=== PATIENT | female | born 1945 | race African-American/Black ===

== ENCOUNTER 2020-07-21 21:44 | Observation (INO) | payer OTHER ==
[2020-07-21 23:22] LABS: BASO % 0.8 % (0-2.0); EOS % 3.5 % (0-4.5); HEMATOCRIT 35.9 % (32.4-45.2); HEMOGLOBIN 11.6 GM/dL (10.7-15.3); LYMPH % 26.6 % (8-40); MCH 30.3 pg (25.7-33.7); MCHC 32.3 g/dl (32.0-36.0); MEAN CELL VOLUME 93.7 fl (80-96); MEAN PLT VOLUME 8.8 fl (7.5-11.1); NEUT % 58.1 % (42.8-82.8); PLATELET COUNT 237 K/MM3 (134-434); RBC 3.84 M/mm3 (3.60-5.2); WHITE BLOOD COUNT 4.8 K/mm3 (4.0-10.0)
[2020-07-22] LABS: ALBUMIN 3.6 g/dl (3.4-5.0); BILIRUBIN,TOTAL 0.8 mg/dL (0.2-1); BLOOD UREA NITROGEN 18.6 mg/dL (7-18); CALCIUM 8.8 mg/dL (8.5-10.1); CREATININE 0.8 mg/dL (0.55-1.3)
[2020-07-22] MEDS ORDERED: NEBIVOLOL 5 MG TABLET (FP) PO ONE (01:27)
[2020-07-22 03:47] LABS: EPI CELLS 19 /uL (0-25.1); HYALINE CASTS 0 /uL (0-3.1); URINE APPEARANCE CLOUDY; URINE BACTERIA >9,000 /uL (0-1359); URINE BILIRUBIN NEGATIVE (NEGATIVE); URINE COLOR YELLOW; URINE GLUCOSE (UA) NEGATIVE (NEGATIVE); URINE KETONE TRACE (NEGATIVE); URINE LEUK ESTERASE NEGATIVE (NEGATIVE); URINE NITRITE NEGATIVE (NEGATIVE); URINE PROTEIN 1+ (NEGATIVE); URINE RBC 2 /uL (0-23.9); URINE WBC 6 /uL (0-25.8)
[2020-07-22 03:53] LABS: URINE BARBITURATES NEGATIVE ng/ml (CUTOFF=200); URINE BENZODIAZEPINES NEGATIVE ng/ml (CUTOFF=200)
[2020-07-22 03:54] LABS: URINE AMPHETAMINES NEGATIVE ng/ml (CUTOFF=500)
[2020-07-22 04:00] LABS: COCAINE, UR NEGATIVE ng/ml (CUTOFF=300); METHADONE, UR NEGATIVE ng/ml (CUTOFF=300); OPIATES, URI NEGATIVE ng/ml (CUTOFF=300); PHENCYCLIDINE,URINE NEGATIVE ng/ml (CUTOFF=25)
[2020-07-22 06:29] LABS: HEMATOCRIT 36.8 % (32.4-45.2); HEMOGLOBIN 12.2 GM/dL (10.7-15.3); MCH 30.6 pg (25.7-33.7); MEAN CELL VOLUME 92.7 fl (80-96); PLATELET COUNT 243 K/MM3 (134-434); RBC 3.97 M/mm3 (3.60-5.2); RDW 14.9 % (11.6-15.6)
[2020-07-22 06:43] LABS: POTASSIUM 4.2 mmol/L (3.5-5.1)
[2020-07-22 06:47] LABS: BLOOD UREA NITROGEN 16.5 mg/dL (7-18)
[2020-07-22 06:51] LABS: CHOLESTEROL 179 mg/dL (50-200); CREATININE 0.7 mg/dL (0.55-1.3); PHOSPHOROUS 4.1 mg/dL (2.5-4.9); TRIGLYCERIDES 55 mg/dL (0-150)
[2020-07-22 06:52] LABS: LDL CHOLESTEROL (ONLY SJRH) 108 mg/dL (5-100)
[2020-07-22 06:54] LABS: HDL CHOLESTEROL 62 mg/dL (40-60)
[2020-07-22] MEDS: INSULIN SLIDING SCALE (NOVOLOG) 1 VIAL SQ SCH ×4 (07:16→23:34)
[2020-07-22] MEDS ORDERED: ASPIRIN 81 MG CHEWABLE TABLETS ONE (09:10)
[2020-07-22] MEDS ORDERED: ENOXAPARIN NA (PORCINE) 40 MG/0.4 ML DISP.SYRIN SQ ONE (09:10)
[2020-07-22] MEDS: ENOXAPARIN NA (PORCINE) 40 MG/0.4 ML DISP.SYRIN SQ SCH (09:13)
[2020-07-22] MEDS: ASPIRIN 81 MG CHEWABLE TABLETS PO SCH (09:13)
[2020-07-22] MEDS ORDERED: amLODIPine BESYLATE 5 MG TABLET (FP) PO SCH (15:45)
[2020-07-22] MEDS ORDERED: amLODIPine BESYLATE 5 MG TABLET (FP) ONE (16:43)
[2020-07-22] MEDS ORDERED: ATORVASTATIN CA 10 MG TABLET (FP) ONE (22:16)
[2020-07-22] MEDS: ATORVASTATIN CA 40 MG TABLET (FP) PO SCH (23:33)
[2020-07-22] MEDS: NEBIVOLOL 5 MG TABLET (FP) PO SCH (23:34)
[2020-07-23 01:42] VITALS: BMI 37.5
[2020-07-23] MEDS: INSULIN SLIDING SCALE (NOVOLOG) 1 VIAL SQ SCH ×4 (06:37→21:13)
[2020-07-23] MEDS ORDERED: PT OWN MED DRAWER 7, Y5N ONE (10:42)
[2020-07-23] MEDS: ASPIRIN 81 MG CHEWABLE TABLETS PO SCH (10:58)
[2020-07-23] MEDS: PETROLATUM, WHITE 30 GM TUBE TP SCH (10:58)
[2020-07-23] MEDS: ENOXAPARIN NA (PORCINE) 40 MG/0.4 ML DISP.SYRIN SQ SCH (10:58)
[2020-07-23] MEDS: amLODIPine BESYLATE 10 MG TABLET (FP) PO SCH (10:58)
[2020-07-23] MEDS: NEBIVOLOL 5 MG TABLET (FP) PO SCH (21:11)
[2020-07-23] MEDS: ATORVASTATIN CA 40 MG TABLET (FP) PO SCH (21:11)
[2020-07-24 06:46] LABS: HEMATOCRIT 35.2 % (32.4-45.2); HEMOGLOBIN 11.6 GM/dL (10.7-15.3); MCH 30.6 pg (25.7-33.7); MEAN CELL VOLUME 92.7 fl (80-96); MEAN PLT VOLUME 8.7 fl (7.5-11.1); PLATELET COUNT 216 K/MM3 (134-434); RDW 14.7 % (11.6-15.6)
[2020-07-24 07:07] LABS: POTASSIUM 3.9 mmol/L (3.5-5.1)
[2020-07-24] MEDS: INSULIN SLIDING SCALE (NOVOLOG) 1 VIAL SQ SCH ×2 (07:08→13:32)
[2020-07-24 07:13] LABS: CALCIUM 9.3 mg/dL (8.5-10.1)
[2020-07-24 07:14] LABS: ALBUMIN 3.5 g/dl (3.4-5.0); BLOOD UREA NITROGEN 18.7 mg/dL (7-18)
[2020-07-24 07:17] LABS: CREATININE 0.6 mg/dL (0.55-1.3)
[2020-07-24 07:19] LABS: BILIRUBIN,TOTAL 1.3 mg/dL (0.2-1); TOT PROT 6.6 g/dl (6.4-8.2)
[2020-07-24] MEDS ORDERED: REGADENOSON 0.4 MG/5 ML PRE-FILLED SYRINGE IVPUSH ONE ×2 (10:24→10:30)
[2020-07-24 10:56] VITALS: BP 148/83; PULSE 80; TEMP 98.2
[2020-07-24] MEDS: ENOXAPARIN NA (PORCINE) 40 MG/0.4 ML DISP.SYRIN SQ SCH (13:48)
[2020-07-24] MEDS: ASPIRIN 81 MG CHEWABLE TABLETS PO SCH (13:49)
[2020-07-24] MEDS: PETROLATUM, WHITE 30 GM TUBE TP SCH (13:49)
[2020-07-24] MEDS: amLODIPine BESYLATE 10 MG TABLET (FP) PO SCH (13:49)
== END 2020-07-24 18:21 | disposition home or self-care (01) ==
LOC: JER 21:44 → JERBED 07-22 00:31 → J4W 07-23 00:20
PROVIDERS: ADMIT Internal Medicine; ATTEND Internal Medicine
PROC: 3E023GC Introduction of Other Therapeutic Substance into Muscle, Percutaneous Approach (ICD-10-PCS; principal; 2020-07-22)
PROC: 3E033GC Introduction of Other Therapeutic Substance into Peripheral Vein, Percutaneous Approach (ICD-10-PCS; 2020-07-22)
DX: R55 Syncope and collapse (principal); E11.9 Type 2 diabetes mellitus without complications; I10 Essential (primary) hypertension; E78.5 Hyperlipidemia, unspecified; Z88.0 Allergy status to penicillin; Z91.018 Allergy to other foods; Z91.013 Allergy to seafood; E66.9 Obesity, unspecified; Z68.37 Body mass index [BMI] 37.0-37.9, adult; Z96.653 Presence of artificial knee joint, bilateral; I35.0 Nonrheumatic aortic (valve) stenosis; D25.9 Leiomyoma of uterus, unspecified; Z29.9 Encounter for prophylactic measures, unspecified
CPT/HCPCS: 36415; 70450-TC; 71045-TC-FY; 78452-TC; 80048; 80053; 80061; 80307; 81003; 82550; 82553; 82962; 83721; 83735; 84100; 84443; 84484; 85025; 85027; 93005; 93010; 93017; 96372; 96374; 97116-GP; 97161-GP; 99285-25; A9502; C9803; G0378; J2785; U0003

== ENCOUNTER 2021-06-21 18:17 | Inpatient (IN) | payer OTHER ==
[2021-06-21] MEDS ORDERED: DIPHTH,PERTUSS(ACELL),TET 0.5 ML DISP.SYRIN IM ONE ×2 (19:23→21:18)
[2021-06-21 21:13] LABS: BASO % 0.8 % (0-2.0); EOS % 0.8 % (0-4.5); HEMATOCRIT 37.7 % (32.4-45.2); HEMOGLOBIN 12.4 GM/dL (10.7-15.3); LYMPH % 13.6 % (8-40); MCH 30.9 pg (25.7-33.7); MCHC 32.8 g/dl (32.0-36.0); MEAN CELL VOLUME 94.2 fl (80-96); MEAN PLT VOLUME 8.5 fl (7.5-11.1); MONO % 8.7 % (3.8-10.2); NEUT % 76.1 % (42.8-82.8); PLATELET COUNT 234 10^3/uL (134-434); RDW 15.2 % (11.6-15.6); WHITE BLOOD COUNT 5.1 K/mm3 (4.0-10.0)
[2021-06-21 21:29] LABS: CHLORIDE 108 mmol/L (98-107); SODIUM 140 mmol/L (136-145)
[2021-06-21 21:32] LABS: ALBUMIN 3.5 g/dl (3.4-5.0); ANION GAP 6 MMOL/L (8-16); CALCIUM 9.2 mg/dL (8.5-10.1); CO2 26 mmol/L (21-32); GLUCOSE,RANDOM 117 mg/dL (74-106); MAGNESIUM 2.4 mg/dL (1.8-2.4)
[2021-06-21 21:35] LABS: CREATININE 0.8 mg/dL (0.55-1.3); SGOT/AST 20 U/L (15-37); SGPT/ALT 15 U/L (13-61)
[2021-06-21 21:37] LABS: BILIRUBIN,TOTAL 0.7 mg/dL (0.2-1)
[2021-06-21 21:38] LABS: ALK PHOS 68 U/L (45-117)
[2021-06-21 21:39] LABS: BLOOD UREA NITROGEN 18.6 mg/dL (7-18)
[2021-06-22] MEDS ORDERED: LISINOPRIL 10 MG TABLET PO ONE (04:12)
[2021-06-22 04:34] VITALS: BMI 37.7
[2021-06-22 05:07] LABS: EPI CELLS >36 /uL (0-25.1); HYALINE CASTS 10 /uL (0-3.1); PH,URINE 5.5 (5.0-8.0); URINE APPEARANCE CLOUDY; URINE BACTERIA >9,000 /uL (0-1359); URINE BILIRUBIN NEGATIVE (NEGATIVE); URINE COLOR YELLOW; URINE GLUCOSE (UA) NEGATIVE (NEGATIVE); URINE KETONE TRACE (NEGATIVE); URINE LEUK ESTERASE 1+ (NEGATIVE); URINE NITRITE NEGATIVE (NEGATIVE); URINE PROTEIN 1+ (NEGATIVE); URINE RBC 14 /uL (0-23.9); URINE WBC 260 /uL (0-25.8)
[2021-06-22] MEDS: INSULIN SLIDING SCALE (NOVOLOG) 1 VIAL SQ SCH ×4 (07:05→21:01)
[2021-06-22 07:16] LABS: BASO % 0.8 % (0-2.0); EOS % 2.2 % (0-4.5); HEMATOCRIT 34.1 % (32.4-45.2); HEMOGLOBIN 11.6 GM/dL (10.7-15.3); LYMPH % 28.3 % (8-40); MCH 31.6 pg (25.7-33.7); MCHC 33.9 g/dl (32.0-36.0); MEAN CELL VOLUME 93.3 fl (80-96); MONO % 7.2 % (3.8-10.2); NEUT % 61.5 % (42.8-82.8); PLATELET COUNT 225 10^3/uL (134-434); RBC 3.65 M/mm3 (3.60-5.2); RDW 15.1 % (11.6-15.6); WHITE BLOOD COUNT 4.5 K/mm3 (4.0-10.0)
[2021-06-22 07:37] LABS: ALBUMIN 3.3 g/dl (3.4-5.0)
[2021-06-22 07:41] LABS: CREATININE 0.8 mg/dL (0.55-1.3); MAGNESIUM 2.2 mg/dL (1.8-2.4)
[2021-06-22 07:42] LABS: BLOOD UREA NITROGEN 18.6 mg/dL (7-18); CALCIUM 9.2 mg/dL (8.5-10.1); TOT PROT 6.4 g/dl (6.4-8.2)
[2021-06-22 07:46] LABS: BILIRUBIN,TOTAL 0.7 mg/dL (0.2-1); PHOSPHOROUS 3.3 mg/dL (2.5-4.9)
[2021-06-22] MEDS ORDERED: ENOXAPARIN NA (PORCINE) 40 MG/0.4 ML DISP.SYRIN SQ SCH (10:00)
[2021-06-22] MEDS: BACITRACIN 15 GM TUBE TOPICAL OINTMENT TP SCH (10:58)
[2021-06-22 19:47] LABS: EPI CELLS 24 /uL (0-25.1); HYALINE CASTS 0 /uL (0-3.1); PH,URINE 5.5 (5.0-8.0); URINE APPEARANCE CLOUDY; URINE BACTERIA >9,000 /uL (0-1359); URINE BILIRUBIN NEGATIVE (NEGATIVE); URINE COLOR YELLOW; URINE GLUCOSE (UA) NEGATIVE (NEGATIVE); URINE KETONE TRACE (NEGATIVE); URINE LEUK ESTERASE 2+ (NEGATIVE); URINE NITRITE POSITIVE (NEGATIVE); URINE PROTEIN TRACE (NEGATIVE); URINE RBC 19 /uL (0-23.9); URINE WBC 171 /uL (0-25.8)
[2021-06-22] MEDS: ATORVASTATIN CA 40 MG TABLET (FP) PO SCH (21:00)
[2021-06-22] MEDS ORDERED: NEBIVOLOL 5 MG TABLET (FP) PO SCH (22:00)
[2021-06-23] MEDS: INSULIN SLIDING SCALE (NOVOLOG) 1 VIAL SQ SCH ×4 (06:54→21:17)
[2021-06-23 07:04] LABS: EOS % 3.6 % (0-4.5); HEMATOCRIT 34.1 % (32.4-45.2); HEMOGLOBIN 11.5 GM/dL (10.7-15.3); LYMPH % 32.2 % (8-40); MCHC 33.6 g/dl (32.0-36.0); MEAN CELL VOLUME 92.4 fl (80-96); MEAN PLT VOLUME 8.6 fl (7.5-11.1); MONO % 10.2 % (3.8-10.2); PLATELET COUNT 220 10^3/uL (134-434); RDW 15.3 % (11.6-15.6); WHITE BLOOD COUNT 4.9 K/mm3 (4.0-10.0)
[2021-06-23 07:09] LABS: ALBUMIN 3.2 g/dl (3.4-5.0); BLOOD UREA NITROGEN 18.9 mg/dL (7-18); CALCIUM 9.2 mg/dL (8.5-10.1)
[2021-06-23 07:10] LABS: MAGNESIUM 2.2 mg/dL (1.8-2.4)
[2021-06-23 07:12] LABS: CREATININE 0.8 mg/dL (0.55-1.3); PHOSPHOROUS 3.2 mg/dL (2.5-4.9)
[2021-06-23 07:13] LABS: BILIRUBIN,TOTAL 1.1 mg/dL (0.2-1); TOT PROT 6.6 g/dl (6.4-8.2)
[2021-06-23] MEDS ORDERED: ATENOLOL 50 MG TABLET (FP) PO SCH (10:00)
[2021-06-23] MEDS ORDERED: amLODIPine BESYLATE 10 MG TABLET (FP) PO SCH (10:00)
[2021-06-23] MEDS: ENOXAPARIN NA (PORCINE) 40 MG/0.4 ML DISP.SYRIN SQ SCH (10:09)
[2021-06-23] MEDS: BACITRACIN 15 GM TUBE TOPICAL OINTMENT TP SCH (10:10)
[2021-06-23] MEDS: ATORVASTATIN CA 40 MG TABLET (FP) PO SCH (21:21)
[2021-06-24] MEDS: INSULIN SLIDING SCALE (NOVOLOG) 1 VIAL SQ SCH ×4 (06:42→21:07)
[2021-06-24 07:44] LABS: BASO % 1.2 % (0-2.0); EOS % 3.7 % (0-4.5); HEMATOCRIT 33.9 % (32.4-45.2); HEMOGLOBIN 11.4 GM/dL (10.7-15.3); LYMPH % 37.1 % (8-40); MCH 31.3 pg (25.7-33.7); MCHC 33.6 g/dl (32.0-36.0); MEAN CELL VOLUME 93.2 fl (80-96); MEAN PLT VOLUME 8.8 fl (7.5-11.1); MONO % 11.6 % (3.8-10.2); NEUT % 46.4 % (42.8-82.8); PLATELET COUNT 211 10^3/uL (134-434); RBC 3.64 M/mm3 (3.60-5.2); RDW 14.9 % (11.6-15.6); WHITE BLOOD COUNT 4.3 K/mm3 (4.0-10.0)
[2021-06-24 07:46] LABS: BLOOD UREA NITROGEN 19.2 mg/dL (7-18); CALCIUM 8.7 mg/dL (8.5-10.1)
[2021-06-24 07:47] LABS: MAGNESIUM 2.1 mg/dL (1.8-2.4)
[2021-06-24 07:49] LABS: CREATININE 0.7 mg/dL (0.55-1.3)
[2021-06-24 07:50] LABS: PHOSPHOROUS 3.2 mg/dL (2.5-4.9)
[2021-06-24 07:51] LABS: BILIRUBIN,TOTAL 1.2 mg/dL (0.2-1); TOT PROT 6.1 g/dl (6.4-8.2)
[2021-06-24] MEDS: BACITRACIN 15 GM TUBE TOPICAL OINTMENT TP SCH (09:54)
[2021-06-24] MEDS: metoPROLOL SUCCINATE 25 MG TAB.SR.24H (FP) PO SCH ×2 (09:54→21:22)
[2021-06-24] MEDS: ENOXAPARIN NA (PORCINE) 40 MG/0.4 ML DISP.SYRIN SQ SCH (09:54)
[2021-06-24] MEDS ORDERED: SODIUM CHLORIDE 1,000 ML IV SCH (13:00)
[2021-06-24] MEDS ORDERED: PT OWN MED DRAWER 7, Y5N ONE ×2 (15:41→20:44)
[2021-06-24] MEDS: ATORVASTATIN CA 40 MG TABLET (FP) PO SCH (21:22)
[2021-06-24] MEDS ORDERED: BENZOCAINE/MENTH/CETYLPYRD CL 1 EACH LOZENGE MM PRN (22:47)
[2021-06-25] MEDS ORDERED: LABETALOL HCL 5 MG/1 ML (100MG/20 ML VIAL) ONE (03:00)
[2021-06-25] MEDS ORDERED: LABETALOL HCL 5 MG/1 ML (100MG/20 ML VIAL) IVPUSH ONE (03:04)
[2021-06-25] MEDS ORDERED: ACETAMINOPHEN 1000 MG/100 ML VIAL IVPB PRN (03:28)
[2021-06-25] MEDS ORDERED: PT OWN MED DRAWER 7, Y5N ONE ×2 (06:21→08:59)
[2021-06-25] MEDS: INSULIN SLIDING SCALE (NOVOLOG) 1 VIAL SQ SCH ×2 (06:38→11:52)
[2021-06-25 07:22] LABS: BASO % 0.9 % (0-2.0); EOS % 5.2 % (0-4.5); HEMATOCRIT 31.7 % (32.4-45.2); HEMOGLOBIN 10.6 GM/dL (10.7-15.3); LYMPH % 39.1 % (8-40); MCH 31.5 pg (25.7-33.7); MCHC 33.5 g/dl (32.0-36.0); MEAN CELL VOLUME 93.9 fl (80-96); MEAN PLT VOLUME 8.5 fl (7.5-11.1); MONO % 11.3 % (3.8-10.2); NEUT % 43.5 % (42.8-82.8); PLATELET COUNT 213 10^3/uL (134-434); RBC 3.37 M/mm3 (3.60-5.2); RDW 15.4 % (11.6-15.6); WHITE BLOOD COUNT 4.3 K/mm3 (4.0-10.0)
[2021-06-25 07:45] LABS: CALCIUM 8.7 mg/dL (8.5-10.1)
[2021-06-25 07:46] LABS: BLOOD UREA NITROGEN 17.9 mg/dL (7-18)
[2021-06-25 07:47] LABS: MAGNESIUM 2.1 mg/dL (1.8-2.4)
[2021-06-25 07:48] LABS: ALBUMIN 2.9 g/dl (3.4-5.0)
[2021-06-25 07:49] LABS: PHOSPHOROUS 2.9 mg/dL (2.5-4.9)
[2021-06-25 07:50] LABS: BILIRUBIN,TOTAL 1.1 mg/dL (0.2-1); TOT PROT 6.2 g/dl (6.4-8.2)
[2021-06-25 07:51] LABS: CREATININE 0.8 mg/dL (0.55-1.3)
[2021-06-25] MEDS ORDERED: OXYMETAZOLINE 0.05% NASAL SOLUTION 15 ML BOTTLE NS ONE (07:52)
[2021-06-25] MEDS: metoPROLOL SUCCINATE 25 MG TAB.SR.24H (FP) PO SCH (09:19)
[2021-06-25] MEDS: ENOXAPARIN NA (PORCINE) 40 MG/0.4 ML DISP.SYRIN SQ SCH (09:19)
[2021-06-25] MEDS: BACITRACIN 15 GM TUBE TOPICAL OINTMENT TP SCH (09:22)
[2021-06-25] MEDS ORDERED: LISINOPRIL 10 MG TABLET PO SCH (10:00)
[2021-06-25 12:43] VITALS: TEMP 98.2
[2021-06-25 15:48] VITALS: BP 149/79; PULSE 72
== END 2021-06-25 15:40 | disposition home or self-care (01) | DRG 312 ==
LOC: JER 18:17 → INTOOBSV 22:31 → OBSVTOIN 22:31 → JERBED 22:31 → UNDOADMOB 22:31 → JERBED 06-22 03:25 → J2W 06-22 03:25 → JERBED 06-22 08:59 → OBSVTOIN 06-25 11:03
PROVIDERS: ADMIT Internal Medicine; ATTEND Internal Medicine
DX: I95.1 Orthostatic hypotension (principal); N39.0 Urinary tract infection, site not specified; I10 Essential (primary) hypertension; E78.5 Hyperlipidemia, unspecified; Z88.0 Allergy status to penicillin; E66.9 Obesity, unspecified; Z68.37 Body mass index [BMI] 37.0-37.9, adult; E11.9 Type 2 diabetes mellitus without complications; S02.2XXA Fracture of nasal bones, initial encounter for closed fracture; W19.XXXA Unspecified fall, initial encounter; Y93.89 Activity, other specified; Y92.89 Other specified places as the place of occurrence of the external cause; Y99.8 Other external cause status; Z79.84 Long term (current) use of oral hypoglycemic drugs; I35.0 Nonrheumatic aortic (valve) stenosis; T46.1X5A Adverse effect of calcium-channel blockers, initial encounter
CPT/HCPCS: 36415; 70450-TC; 70486-TC; 71045-TC-FY; 72125-TC; 80053; 80061; 81003; 82550; 82553; 82962; 83735; 84100; 84484; 85025; 87086; 87186; 90715; 93005; 93010; 93306-TC; 93880-TC; 97116-GP; 97161-GP; 99285-25; C9803; G0378; U0003; U0005

== ENCOUNTER 2021-09-22 14:23 | Inpatient (IN) | payer OTHER ==
[2021-09-22 16:08] LABS: BASO % 1.4 % (0-2.0); EOS % 1.2 % (0-4.5); HEMATOCRIT 33.1 % (32.4-45.2); HEMOGLOBIN 10.8 GM/dL (10.7-15.3); LYMPH % 16.5 % (8-40); MCH 29.5 pg (25.7-33.7); MCHC 32.8 g/dl (32.0-36.0); MEAN CELL VOLUME 90.1 fl (80-96); MONO % 9.8 % (3.8-10.2); NEUT % 71.1 % (42.8-82.8); PLATELET COUNT 246 10^3/uL (134-434); RBC 3.67 M/mm3 (3.60-5.2); RDW 14.9 % (11.6-15.6); WHITE BLOOD COUNT 3.8 K/mm3 (4.0-10.0)
[2021-09-22 16:28] LABS: BLOOD UREA NITROGEN 16.7 mg/dL (7-18); CALCIUM 9.5 mg/dL (8.5-10.1)
[2021-09-22 16:29] LABS: ALBUMIN 3.7 g/dl (3.4-5.0)
[2021-09-22 16:31] LABS: CREATININE 0.8 mg/dL (0.55-1.3)
[2021-09-22 16:33] LABS: BILIRUBIN,TOTAL 0.6 mg/dL (0.2-1); TOT PROT 7.3 g/dl (6.4-8.2)
[2021-09-22] MEDS ORDERED: PANTOPRAZOLE 40 MG TABLET PO STA (18:28)
[2021-09-22] MEDS ORDERED: CLOPIDOGREL BISULFATE 75 MG TABLET (FP) PO STA (18:28)
[2021-09-22] MEDS ORDERED: ATORVASTATIN CA 40 MG TABLET (FP) PO STA (18:29)
[2021-09-22] MEDS ORDERED: PANTOPRAZOLE 40 MG TABLET ONE (18:36)
[2021-09-22] MEDS ORDERED: CLOPIDOGREL BISULFATE 75 MG TABLET (FP) ONE (18:37)
[2021-09-22] MEDS ORDERED: ATORVASTATIN CA 40 MG TABLET (FP) ONE ×2 (18:37→22:05)
[2021-09-22] MEDS ORDERED: HEPARIN NA (PORCINE) 5,000 UNITS/ML 1ML VIAL ONE (22:06)
[2021-09-22] MEDS: ATORVASTATIN CA 40 MG TABLET (FP) PO SCH (22:12)
[2021-09-22] MEDS: HEPARIN NA (PORCINE) 5,000 UNITS/ML 1ML VIAL SQ SCH (22:12)
[2021-09-23] MEDS ORDERED: HEPARIN NA (PORCINE) 5,000 UNITS/ML 1ML VIAL ONE ×2 (06:14→14:24)
[2021-09-23] MEDS: HEPARIN NA (PORCINE) 5,000 UNITS/ML 1ML VIAL SQ SCH ×3 (06:24→21:38)
[2021-09-23 06:34] LABS: URINE APPEARANCE CLEAR; URINE BILIRUBIN NEGATIVE (NEGATIVE); URINE COLOR YELLOW; URINE GLUCOSE (UA) NEGATIVE (NEGATIVE); URINE KETONE NEGATIVE (NEGATIVE); URINE LEUK ESTERASE NEGATIVE (NEGATIVE); URINE NITRITE NEGATIVE (NEGATIVE); URINE PROTEIN NEGATIVE (NEGATIVE)
[2021-09-23] MEDS: INSULIN SLIDING SCALE (NOVOLOG) 1 VIAL SQ SCH ×3 (07:45→17:04)
[2021-09-23] MEDS ORDERED: PANTOPRAZOLE 40 MG TABLET ONE (10:41)
[2021-09-23] MEDS ORDERED: ASPIRIN 81 MG CHEWABLE TABLETS ONE (10:41)
[2021-09-23] MEDS ORDERED: CLOPIDOGREL BISULFATE 75 MG TABLET (FP) ONE (10:42)
[2021-09-23] MEDS: CLOPIDOGREL BISULFATE 75 MG TABLET (FP) PO SCH (10:50)
[2021-09-23] MEDS: ASPIRIN 81 MG CHEWABLE TABLETS PO SCH (10:50)
[2021-09-23] MEDS: PANTOPRAZOLE 40 MG TABLET PO SCH (10:50)
[2021-09-23 10:54] LABS: BASO % 2.1 % (0-2.0); EOS % 2.5 % (0-4.5); HEMATOCRIT 32.4 % (32.4-45.2); HEMOGLOBIN 10.7 GM/dL (10.7-15.3); LYMPH % 41.7 % (8-40); MCH 29.4 pg (25.7-33.7); MEAN CELL VOLUME 89.1 fl (80-96); MEAN PLT VOLUME 8.6 fl (7.5-11.1); MONO % 8.5 % (3.8-10.2); NEUT % 45.2 % (42.8-82.8); PLATELET COUNT 257 10^3/uL (134-434); RBC 3.64 M/mm3 (3.60-5.2); RDW 14.7 % (11.6-15.6)
[2021-09-23 11:20] LABS: ALBUMIN 3.5 g/dl (3.4-5.0); BILIRUBIN,TOTAL 0.9 mg/dL (0.2-1); BLOOD UREA NITROGEN 21.6 mg/dL (7-18); CALCIUM 9.4 mg/dL (8.5-10.1); CREATININE 0.8 mg/dL (0.55-1.3); MAGNESIUM 2.3 mg/dL (1.8-2.4); TOT PROT 7.1 g/dl (6.4-8.2)
[2021-09-23 17:01] VITALS: BMI 35.7
[2021-09-23] MEDS: ATORVASTATIN CA 40 MG TABLET (FP) PO SCH (21:39)
[2021-09-24] MEDS: INSULIN SLIDING SCALE (NOVOLOG) 1 VIAL SQ SCH ×3 (06:23→17:03)
[2021-09-24] MEDS: HEPARIN NA (PORCINE) 5,000 UNITS/ML 1ML VIAL SQ SCH ×3 (06:48→21:31)
[2021-09-24] MEDS: ASPIRIN 81 MG CHEWABLE TABLETS PO SCH (10:26)
[2021-09-24] MEDS: PANTOPRAZOLE 40 MG TABLET PO SCH (10:26)
[2021-09-24] MEDS: CLOPIDOGREL BISULFATE 75 MG TABLET (FP) PO SCH (10:26)
[2021-09-24 13:07] LABS: BASO % 2.9 % (0-2.0); EOS % 3.7 % (0-4.5); HEMATOCRIT 30.8 % (32.4-45.2); HEMOGLOBIN 10.2 GM/dL (10.7-15.3); LYMPH % 43.5 % (8-40); MCH 29.3 pg (25.7-33.7); MEAN CELL VOLUME 88.9 fl (80-96); MEAN PLT VOLUME 8.6 fl (7.5-11.1); MONO % 14.1 % (3.8-10.2); NEUT % 35.8 % (42.8-82.8); PLATELET COUNT 228 10^3/uL (134-434); RBC 3.47 M/mm3 (3.60-5.2); RDW 14.4 % (11.6-15.6); WHITE BLOOD COUNT 2.6 K/mm3 (4.0-10.0)
[2021-09-24 13:22] LABS: ALBUMIN 3.2 g/dl (3.4-5.0)
[2021-09-24 13:25] LABS: CREATININE 0.8 mg/dL (0.55-1.3)
[2021-09-24 13:27] LABS: BILIRUBIN,TOTAL 0.9 mg/dL (0.2-1); TOT PROT 6.6 g/dl (6.4-8.2)
[2021-09-24] MEDS: DOCUSATE SODIUM 100 MG CAPSULE (FP) PO SCH (18:51)
[2021-09-24] MEDS: ATORVASTATIN CA 40 MG TABLET (FP) PO SCH (21:31)
[2021-09-25] MEDS: INSULIN SLIDING SCALE (NOVOLOG) 1 VIAL SQ SCH ×3 (06:07→17:52)
[2021-09-25] MEDS: HEPARIN NA (PORCINE) 5,000 UNITS/ML 1ML VIAL SQ SCH ×3 (06:28→21:52)
[2021-09-25 07:30] LABS: HEMATOCRIT 31.6 % (32.4-45.2); HEMOGLOBIN 10.5 GM/dL (10.7-15.3); MCH 29.4 pg (25.7-33.7); MCHC 33.1 g/dl (32.0-36.0); MEAN CELL VOLUME 88.9 fl (80-96); MEAN PLT VOLUME 8.6 fl (7.5-11.1); PLATELET COUNT 215 10^3/uL (134-434); RBC 3.56 M/mm3 (3.60-5.2); RDW 14.8 % (11.6-15.6); WHITE BLOOD COUNT 3.8 K/mm3 (4.0-10.0)
[2021-09-25 07:59] LABS: CALCIUM 8.8 mg/dL (8.5-10.1)
[2021-09-25 08:00] LABS: MAGNESIUM 2.1 mg/dL (1.8-2.4)
[2021-09-25 08:02] LABS: ALBUMIN 3.4 g/dl (3.4-5.0); BLOOD UREA NITROGEN 22.5 mg/dL (7-18)
[2021-09-25 08:03] LABS: CREATININE 0.8 mg/dL (0.55-1.3)
[2021-09-25 08:05] LABS: PHOSPHOROUS 3.8 mg/dL (2.5-4.9); TOT PROT 6.6 g/dl (6.4-8.2)
[2021-09-25 08:06] LABS: BILIRUBIN,TOTAL 0.7 mg/dL (0.2-1)
[2021-09-25] MEDS: PANTOPRAZOLE 40 MG TABLET PO SCH (09:03)
[2021-09-25] MEDS: ASPIRIN 81 MG CHEWABLE TABLETS PO SCH (09:03)
[2021-09-25] MEDS: CLOPIDOGREL BISULFATE 75 MG TABLET (FP) PO SCH (09:03)
[2021-09-25] MEDS: DOCUSATE SODIUM 100 MG CAPSULE (FP) PO SCH (09:08)
[2021-09-25] MEDS ORDERED: metoPROLOL SUCCINATE 25 MG TAB.SR.24H (FP) PO SCH (10:00)
[2021-09-25] MEDS: LISINOPRIL 10 MG TABLET PO SCH (12:27)
[2021-09-25] MEDS: ASPIRIN/DIPYRIDAMOLE 25 MG/200 MG CAPSULE PO SCH (21:52)
[2021-09-25] MEDS ORDERED: ATORVASTATIN CA 80 MG TABLET (FP) PO SCH (22:00)
[2021-09-26] MEDS: HEPARIN NA (PORCINE) 5,000 UNITS/ML 1ML VIAL SQ SCH ×2 (05:50→13:53)
[2021-09-26] MEDS: INSULIN SLIDING SCALE (NOVOLOG) 1 VIAL SQ SCH ×3 (06:04→16:51)
[2021-09-26 07:20] LABS: HEMOGLOBIN 9.7 GM/dL (10.7-15.3); MCHC 32.4 g/dl (32.0-36.0); MEAN CELL VOLUME 89.5 fl (80-96); MEAN PLT VOLUME 9.2 fl (7.5-11.1); PLATELET COUNT 226 10^3/uL (134-434); RBC 3.36 M/mm3 (3.60-5.2); RDW 14.8 % (11.6-15.6); WHITE BLOOD COUNT 4.4 K/mm3 (4.0-10.0)
[2021-09-26 07:39] LABS: CALCIUM 8.6 mg/dL (8.5-10.1)
[2021-09-26 07:40] LABS: BLOOD UREA NITROGEN 20.8 mg/dL (7-18)
[2021-09-26 07:43] LABS: CREATININE 0.7 mg/dL (0.55-1.3)
[2021-09-26] MEDS: PANTOPRAZOLE 40 MG TABLET PO SCH (09:39)
[2021-09-26] MEDS: CLOPIDOGREL BISULFATE 75 MG TABLET (FP) PO SCH (09:39)
[2021-09-26] MEDS: LISINOPRIL 10 MG TABLET PO SCH (09:39)
[2021-09-26] MEDS: ASPIRIN/DIPYRIDAMOLE 25 MG/200 MG CAPSULE PO SCH (09:40)
[2021-09-26] MEDS: DOCUSATE SODIUM 100 MG CAPSULE (FP) PO SCH (09:40)
[2021-09-26 15:42] VITALS: BP 123/82; PULSE 79; TEMP 97.9
== END 2021-09-26 18:40 | disposition home or self-care (01) | DRG 66 ==
LOC: JER 14:23 → JERBED 17:25 → OBSVTOIN 18:24 → J4W 09-23 15:40
PROVIDERS: ATTEND Internal Medicine
DX: I63.89 Other cerebral infarction (principal); I25.10 Atherosclerotic heart disease of native coronary artery without angina pectoris; E11.9 Type 2 diabetes mellitus without complications; R55 Syncope and collapse; E78.5 Hyperlipidemia, unspecified; Z96.653 Presence of artificial knee joint, bilateral; I35.0 Nonrheumatic aortic (valve) stenosis; R94.31 Abnormal electrocardiogram [ECG] [EKG]; I11.9 Hypertensive heart disease without heart failure; Z95.5 Presence of coronary angioplasty implant and graft
CPT/HCPCS: 36415; 70450-TC; 70551-TC; 71046-TC-FY; 80048; 80053; 80061; 81003; 82550; 82962; 83735; 84100; 84484; 85025; 85027; 87086; 93005; 93010; 99285-25; C9803; G0378; J1644; U0003; U0005

== ENCOUNTER 2021-10-30 18:59 | Observation (INO) | payer OTHER ==
[2021-10-30] MEDS ORDERED: SODIUM CHLORIDE 1,000 ML IV STA (19:46)
[2021-10-30 20:09] LABS: BASO % 0.9 % (0-2.0); EOS % 2.1 % (0-4.5); HEMOGLOBIN 10.5 GM/dL (10.7-15.3); LYMPH % 19.9 % (8-40); MCH 28.3 pg (25.7-33.7); MCHC 32.9 g/dl (32.0-36.0); MEAN PLT VOLUME 8.8 fl (7.5-11.1); MONO % 8.3 % (3.8-10.2); NEUT % 68.8 % (42.8-82.8); PLATELET COUNT 250 10^3/uL (134-434); RBC 3.72 M/mm3 (3.60-5.2); RDW 15.4 % (11.6-15.6); WHITE BLOOD COUNT 4.8 K/mm3 (4.0-10.0)
[2021-10-30 20:24] LABS: CALCIUM 9.1 mg/dL (8.5-10.1)
[2021-10-30 20:25] LABS: ALBUMIN 3.2 g/dl (3.4-5.0); BLOOD UREA NITROGEN 13.3 mg/dL (7-18); MAGNESIUM 1.8 mg/dL (1.8-2.4)
[2021-10-30 20:28] LABS: CREATININE 0.9 mg/dL (0.55-1.3)
[2021-10-30 20:29] LABS: BILIRUBIN,TOTAL 0.6 mg/dL (0.2-1); TOT PROT 6.8 g/dl (6.4-8.2)
[2021-10-30 23:08] LABS: EPI CELLS 7 /uL (0-25.1); HYALINE CASTS 1 /uL (0-3.1); PH,URINE 5.5 (5.0-8.0); URINE APPEARANCE CLOUDY; URINE BACTERIA >9,000 /uL (0-1359); URINE BILIRUBIN NEGATIVE (NEGATIVE); URINE COLOR YELLOW; URINE GLUCOSE (UA) NEGATIVE (NEGATIVE); URINE KETONE NEGATIVE (NEGATIVE); URINE LEUK ESTERASE 1+ (NEGATIVE); URINE NITRITE NEGATIVE (NEGATIVE); URINE PROTEIN 1+ (NEGATIVE); URINE RBC 57 /uL (0-23.9); URINE WBC 164 /uL (0-25.8)
[2021-10-31 03:34] VITALS: BMI 34.7
[2021-10-31] MEDS ORDERED: NITROFURANTOIN MACROCRYSTAL 50 MG CAPSULE (FP) PO SCH (06:00)
[2021-10-31] MEDS: INSULIN SLIDING SCALE (NOVOLOG) 1 VIAL SQ SCH ×4 (06:19→21:19)
[2021-10-31 07:21] LABS: BASO % 1.1 % (0-2.0); EOS % 2.3 % (0-4.5); HEMATOCRIT 31.1 % (32.4-45.2); HEMOGLOBIN 10.1 GM/dL (10.7-15.3); MCH 27.9 pg (25.7-33.7); MCHC 32.4 g/dl (32.0-36.0); MEAN PLT VOLUME 8.6 fl (7.5-11.1); MONO % 9.7 % (3.8-10.2); NEUT % 55.9 % (42.8-82.8); PLATELET COUNT 228 10^3/uL (134-434); RBC 3.62 M/mm3 (3.60-5.2); RDW 15.2 % (11.6-15.6); RETICULOCYTES 0.76 % (0.5-1.5); WHITE BLOOD COUNT 4.3 K/mm3 (4.0-10.0)
[2021-10-31 07:40] LABS: ALBUMIN 3.1 g/dl (3.4-5.0); BLOOD UREA NITROGEN 11.2 mg/dL (7-18); CALCIUM 8.5 mg/dL (8.5-10.1); MAGNESIUM 1.8 mg/dL (1.8-2.4)
[2021-10-31 07:43] LABS: CREATININE 0.7 mg/dL (0.55-1.3); PHOSPHOROUS 3.2 mg/dL (2.5-4.9)
[2021-10-31 07:45] LABS: BILIRUBIN,TOTAL 0.6 mg/dL (0.2-1)
[2021-10-31 07:48] LABS: TOT PROT 6.3 g/dl (6.4-8.2)
[2021-10-31] MEDS ORDERED: POTASSIUM CHLORIDE TABS 20 MEQ TABLET.ER (FP) PO ONE (07:52)
[2021-10-31] MEDS ORDERED: SODIUM CHLORIDE 1,000 ML IV SCH ×2 (08:15→10:26)
[2021-10-31] MEDS: ENOXAPARIN NA (PORCINE) 40 MG/0.4 ML DISP.SYRIN SQ SCH (09:56)
[2021-10-31] MEDS ORDERED: POTASSIUM CHLORIDE ORAL LIQUID 20 MEQ/15 ML PO ONE (12:00)
[2021-10-31] MEDS ORDERED: CYANOCOBALAMIN (VITAMIN B-12) 1000 MCG/1 ML VIAL IM ONE (12:15)
[2021-10-31] MEDS ORDERED: ATORVASTATIN CA 80 MG TABLET (FP) PO SCH (22:00)
[2021-11-01] MEDS: INSULIN SLIDING SCALE (NOVOLOG) 1 VIAL SQ SCH (06:39)
[2021-11-01 07:19] LABS: BASO % 1.9 % (0-2.0); EOS % 4.6 % (0-4.5); HEMATOCRIT 29.9 % (32.4-45.2); HEMOGLOBIN 9.6 GM/dL (10.7-15.3); LYMPH % 42.4 % (8-40); MCH 27.8 pg (25.7-33.7); MCHC 32.2 g/dl (32.0-36.0); MEAN CELL VOLUME 86.2 fl (80-96); MEAN PLT VOLUME 9.1 fl (7.5-11.1); MONO % 12.5 % (3.8-10.2); NEUT % 38.6 % (42.8-82.8); PLATELET COUNT 225 10^3/uL (134-434); RBC 3.47 M/mm3 (3.60-5.2); RDW 15.1 % (11.6-15.6); WHITE BLOOD COUNT 3.5 K/mm3 (4.0-10.0)
[2021-11-01 07:53] LABS: ALBUMIN 3.2 g/dl (3.4-5.0); BLOOD UREA NITROGEN 11.8 mg/dL (7-18)
[2021-11-01 07:57] LABS: CALCIUM 8.8 mg/dL (8.5-10.1)
[2021-11-01 08:00] LABS: CREATININE 0.6 mg/dL (0.55-1.3)
[2021-11-01 08:01] LABS: BILIRUBIN,TOTAL 0.7 mg/dL (0.2-1)
[2021-11-01 08:02] LABS: TOT PROT 6.4 g/dl (6.4-8.2)
[2021-11-01] MEDS: ENOXAPARIN NA (PORCINE) 40 MG/0.4 ML DISP.SYRIN SQ SCH (09:54)
[2021-11-01] MEDS ORDERED: CYANOCOBALAMIN (VITAMIN B-12) 100 MCG TABLET PO SCH (10:00)
[2021-11-01] MEDS ORDERED: CYANOCOBALAMIN (VITAMIN B-12) 1000 MCG/1 ML VIAL IM SCH (10:00)
[2021-11-01] MEDS ORDERED: LISINOPRIL 5 MG TABLET PO SCH (10:45)
[2021-11-01] MEDS ORDERED: ASPIRIN COATED 81 MG TABLET.EC PO SCH (10:45)
[2021-11-01] MEDS ORDERED: metoPROLOL SUCCINATE 25 MG TAB.SR.24H (FP) PO SCH (10:45)
[2021-11-01] MEDS ORDERED: CLOPIDOGREL BISULFATE 75 MG TABLET (FP) PO SCH (10:45)
[2021-11-01 14:23] VITALS: TEMP 97.5
[2021-11-01 17:33] VITALS: BP 160/106; PULSE 82
== END 2021-11-01 19:13 | disposition home or self-care (01) ==
LOC: JER 18:59 → JERBED 21:57 → J4W 10-31 02:23
PROVIDERS: ADMIT Internal Medicine; ATTEND Internal Medicine
PROC: 3E023GC Introduction of Other Therapeutic Substance into Muscle, Percutaneous Approach (ICD-10-PCS; principal; 2021-10-30)
PROC: 3E013GC Introduction of Other Therapeutic Substance into Subcutaneous Tissue, Percutaneous Approach (ICD-10-PCS; 2021-10-30)
PROC: 3E0337Z Introduction of Electrolytic and Water Balance Substance into Peripheral Vein, Percutaneous Approach (ICD-10-PCS; 2021-10-30)
DX: R55 Syncope and collapse (principal); I45.81 Long QT syndrome; I10 Essential (primary) hypertension; E11.9 Type 2 diabetes mellitus without complications; E78.5 Hyperlipidemia, unspecified; D64.9 Anemia, unspecified; I25.10 Atherosclerotic heart disease of native coronary artery without angina pectoris; R74.8 Abnormal levels of other serum enzymes; R82.81 Pyuria; E66.9 Obesity, unspecified; Z68.34 Body mass index [BMI] 34.0-34.9, adult; Z86.73 Personal history of transient ischemic attack (TIA), and cerebral infarction without residual deficits; Z88.0 Allergy status to penicillin; Z91.013 Allergy to seafood; Z96.653 Presence of artificial knee joint, bilateral; Z79.84 Long term (current) use of oral hypoglycemic drugs; Z90.710 Acquired absence of both cervix and uterus; Z95.5 Presence of coronary angioplasty implant and graft
CPT/HCPCS: 36415; 71045-TC-FY; 80053; 81003; 82272; 82607; 82728; 82746; 82962; 83540; 83550; 83735; 84100; 84484; 85025; 85045; 87086; 87186; 93005; 93010; 96360; 96372; 97116-GP; 97161-GP; 99285-25; C9803-CS; G0378; U0003; U0005

== ENCOUNTER 2022-04-27 14:53 | Observation (INO) | payer OTHER ==
[2022-04-27] MEDS ORDERED: SODIUM CHLORIDE 0.9% 500 ML INFUS.BAG IV ONE (15:56)
[2022-04-27 16:12] LABS: BASO % 1.1 % (0-2.0); EOS % 3.5 % (0-4.5); HEMATOCRIT 32.7 % (32.4-45.2); HEMOGLOBIN 10.6 GM/dL (10.7-15.3); LYMPH % 25.9 % (8-40); MCH 28.2 pg (25.7-33.7); MCHC 32.5 g/dl (32.0-36.0); MEAN CELL VOLUME 86.6 fl (80-96); MEAN PLT VOLUME 8.7 fl (7.5-11.1); MONO % 13.1 % (3.8-10.2); NEUT % 56.4 % (42.8-82.8); PLATELET COUNT 237 10^3/uL (134-434); RBC 3.77 M/mm3 (3.60-5.2); RDW 17.6 % (11.6-15.6); WHITE BLOOD COUNT 3.5 K/mm3 (4.0-10.0)
[2022-04-27 16:36] LABS: ALBUMIN 3.6 g/dl (3.4-5.0); BLOOD UREA NITROGEN 20.8 mg/dL (7-18); CALCIUM 9.5 mg/dL (8.5-10.1)
[2022-04-27 16:41] LABS: BILIRUBIN,TOTAL 0.8 mg/dL (0.2-1); TOT PROT 7.1 g/dl (6.4-8.2)
[2022-04-27] MEDS ORDERED: SODIUM CHLORIDE 1,000 ML IV SCH (21:30)
[2022-04-28 06:40] VITALS: BMI 30.4
[2022-04-28] MEDS: INSULIN SLIDING SCALE (NOVOLOG) 1 VIAL SQ SCH ×4 (06:50→21:15)
[2022-04-28] MEDS: ASPIRIN COATED 81 MG TABLET.EC PO SCH (09:42)
[2022-04-28] MEDS: CLOPIDOGREL BISULFATE 75 MG TABLET (FP) PO SCH (09:42)
[2022-04-28] MEDS: ENOXAPARIN NA (PORCINE) 40 MG/0.4 ML DISP.SYRIN SQ SCH (09:42)
[2022-04-28] MEDS: metoPROLOL SUCCINATE 25 MG TAB.SR.24H (FP) PO SCH (11:05)
[2022-04-28 13:18] LABS: BASO % 1.2 % (0-2.0); EOS % 3.5 % (0-4.5); HEMATOCRIT 31.5 % (32.4-45.2); HEMOGLOBIN 10.3 GM/dL (10.7-15.3); LYMPH % 24.8 % (8-40); MCH 28.2 pg (25.7-33.7); MCHC 32.8 g/dl (32.0-36.0); MEAN CELL VOLUME 85.9 fl (80-96); MEAN PLT VOLUME 8.5 fl (7.5-11.1); MONO % 9.4 % (3.8-10.2); NEUT % 61.1 % (42.8-82.8); PLATELET COUNT 216 10^3/uL (134-434); RBC 3.66 M/mm3 (3.60-5.2); RDW 17.9 % (11.6-15.6); WHITE BLOOD COUNT 3.5 K/mm3 (4.0-10.0)
[2022-04-28 13:25] LABS: INR 1.17 (0.83-1.09); PROTHROMBIN TIME (PATIENT) 13.5 SEC (9.7-13.0)
[2022-04-28 13:28] LABS: ACTIVATED PTT 40.3 SECONDS (25.2-36.5)
[2022-04-28 14:11] LABS: ALBUMIN 3.3 g/dl (3.4-5.0); BLOOD UREA NITROGEN 19.7 mg/dL (7-18); CALCIUM 8.9 mg/dL (8.5-10.1); CREATININE 0.7 mg/dL (0.55-1.3); MAGNESIUM 2.1 mg/dL (1.8-2.4); PHOSPHOROUS 3.1 mg/dL (2.5-4.9); TOT PROT 6.7 g/dl (6.4-8.2)
[2022-04-28 23:29] LABS: EPI CELLS 6 /uL (0-25.1); HYALINE CASTS 0 /uL (0-3.1); PH,URINE 6.5 (5.0-8.0); URINE APPEARANCE CLEAR; URINE BACTERIA >9,000 /uL (0-1359); URINE BILIRUBIN NEGATIVE (NEGATIVE); URINE COLOR YELLOW; URINE GLUCOSE (UA) NEGATIVE (NEGATIVE); URINE KETONE NEGATIVE (NEGATIVE); URINE LEUK ESTERASE NEGATIVE (NEGATIVE); URINE NITRITE POSITIVE (NEGATIVE); URINE PROTEIN NEGATIVE (NEGATIVE); URINE RBC 4 /uL (0-23.9); URINE WBC 15 /uL (0-25.8)
[2022-04-29] MEDS: INSULIN SLIDING SCALE (NOVOLOG) 1 VIAL SQ SCH ×3 (06:32→16:31)
[2022-04-29 08:54] VITALS: RESP 18
[2022-04-29] MEDS: CLOPIDOGREL BISULFATE 75 MG TABLET (FP) PO SCH (09:00)
[2022-04-29] MEDS: metoPROLOL SUCCINATE 25 MG TAB.SR.24H (FP) PO SCH (09:00)
[2022-04-29] MEDS: ENOXAPARIN NA (PORCINE) 40 MG/0.4 ML DISP.SYRIN SQ SCH (09:00)
[2022-04-29] MEDS: ASPIRIN COATED 81 MG TABLET.EC PO SCH (09:00)
[2022-04-29] MEDS ORDERED: CEFTRIAXONE 1 GM in DEXTROSE 5%-WATER - 50 ML IVPB SCH (10:00)
[2022-04-29] MEDS ORDERED: DEXTROSE 5%-LACTATED RINGERS 1,000 ML IV SCH (14:30)
[2022-04-29 16:09] VITALS: BP 147/91; PULSE 76; TEMP 98.4
[2022-04-29] MEDS ORDERED: SULFAMETHOXAZOLE/TRIMETHOPRIM 800MG/160MG D.S. TABLET PO ONE (16:35)
[2022-04-29] MEDS ORDERED: SULFAMETHOXAZOLE/TRIMETHOPRIM 800MG/160MG D.S. TABLET PO SCH (22:00)
== END 2022-04-29 18:46 | disposition home or self-care (01) ==
LOC: JER 14:53 → JERBED 17:30 → J4W 04-28 06:00
PROVIDERS: ADMIT Internal Medicine; ATTEND Internal Medicine
PROC: 3E023GC Introduction of Other Therapeutic Substance into Muscle, Percutaneous Approach (ICD-10-PCS; principal; 2022-04-27)
PROC: 3E0337Z Introduction of Electrolytic and Water Balance Substance into Peripheral Vein, Percutaneous Approach (ICD-10-PCS; 2022-04-27)
PROC: 3E013VG Introduction of Insulin into Subcutaneous Tissue, Percutaneous Approach (ICD-10-PCS; 2022-04-27)
DX: N39.0 Urinary tract infection, site not specified (principal); I25.10 Atherosclerotic heart disease of native coronary artery without angina pectoris; I11.9 Hypertensive heart disease without heart failure; E11.9 Type 2 diabetes mellitus without complications; E78.5 Hyperlipidemia, unspecified; Z86.73 Personal history of transient ischemic attack (TIA), and cerebral infarction without residual deficits
CPT/HCPCS: 36415; 71045-TC-FY; 80053; 81003; 82962; 83735; 84100; 84443; 84484; 85025; 85610; 85730; 87086; 87186; 93005; 93010; 96360; 96361; 96372; 99285-25; C9803-CS; G0378; U0003; U0005

== ENCOUNTER 2022-05-09 12:26 | Emergency (ER) | payer OTHER ==
[2022-05-09 12:50] VITALS: BP 128/90; PULSE 64; RESP 20; TEMP 97.8; BMI 33.4
[2022-05-09] MEDS ORDERED: SODIUM CHLORIDE 0.9% 500 ML INFUS.BAG IV ONE (13:37)
[2022-05-09 14:40] LABS: BASO % 2.2 % (0-2.0); EOS % 3.1 % (0-4.5); HEMATOCRIT 33.5 % (32.4-45.2); HEMOGLOBIN 10.8 GM/dL (10.7-15.3); LYMPH % 28.3 % (8-40); MCH 27.8 pg (25.7-33.7); MCHC 32.1 g/dl (32.0-36.0); MEAN CELL VOLUME 86.6 fl (80-96); MEAN PLT VOLUME 8.6 fl (7.5-11.1); MONO % 9.6 % (3.8-10.2); NEUT % 56.8 % (42.8-82.8); PLATELET COUNT 225 10^3/uL (134-434); RBC 3.86 M/mm3 (3.60-5.2); WHITE BLOOD COUNT 3.3 K/mm3 (4.0-10.0)
[2022-05-09 14:58] LABS: ALBUMIN 3.5 g/dl (3.4-5.0); BLOOD UREA NITROGEN 17.7 mg/dL (7-18)
[2022-05-09 15:01] LABS: CREATININE 0.7 mg/dL (0.55-1.3)
[2022-05-09 15:03] LABS: BILIRUBIN,TOTAL 0.7 mg/dL (0.2-1); TOT PROT 7.1 g/dl (6.4-8.2)
[2022-05-09 17:11] LABS: BLOOD UREA NITROGEN 14.9 mg/dL (7-18)
[2022-05-09 17:13] LABS: CREATININE 0.5 mg/dL (0.55-1.3)
[2022-05-09 17:20] LABS: CALCIUM 7.6 mg/dL (8.5-10.1)
== END 2022-05-09 20:23 | disposition home or self-care (01) ==
LOC: JER 12:26
DX: R53.1 Weakness (principal)
CPT/HCPCS: 0241U-QW; 36415; 80048; 80053; 84484; 85025; 93005; 93010; 99283-25

== ENCOUNTER 2022-08-14 13:55 | Inpatient (IN) | payer OTHER ==
[2022-08-14 14:30] VITALS: BMI 34.0
[2022-08-14 16:04] LABS: BASO % 1.3 % (0-2.0); EOS % 0.3 % (0-4.5); HEMATOCRIT 31.7 % (32.4-45.2); HEMOGLOBIN 10.2 GM/dL (10.7-15.3); LYMPH % 9.9 % (8-40); MCH 27.8 pg (25.7-33.7); MEAN CELL VOLUME 86.9 fl (80-96); MEAN PLT VOLUME 8.4 fl (7.5-11.1); MONO % 18.5 % (3.8-10.2); PLATELET COUNT 196 10^3/uL (134-434); RBC 3.65 M/mm3 (3.60-5.2); RDW 17.9 % (11.6-15.6); WHITE BLOOD COUNT 4.1 K/mm3 (4.0-10.0)
[2022-08-14 16:28] LABS: ALBUMIN 3.3 g/dl (3.4-5.0); BLOOD UREA NITROGEN 22.8 mg/dL (7-18)
[2022-08-14 16:29] LABS: CALCIUM 8.6 mg/dL (8.5-10.1)
[2022-08-14 16:31] LABS: CREATININE 0.8 mg/dL (0.55-1.3)
[2022-08-14 16:33] LABS: BILIRUBIN,TOTAL 1.5 mg/dL (0.2-1); TOT PROT 6.6 g/dl (6.4-8.2)
[2022-08-14] MEDS ORDERED: LIDOCAINE 5% TOPICAL PATCH TP ONE (17:04)
[2022-08-14] MEDS ORDERED: LIDOCAINE 5% TOPICAL PATCH ONE (17:12)
[2022-08-14] MEDS ORDERED: ACETAMINOPHEN 325 MG TABLET (FP) PO PRN (17:38)
[2022-08-14] MEDS ORDERED: LIDOCAINE PATCH REMOVAL MC SCH (22:00)
[2022-08-14] MEDS: INSULIN SLIDING SCALE (NOVOLOG) 1 VIAL SQ SCH (22:42)
[2022-08-14 23:33] LABS: EPI CELLS >36 /uL (0-25.1); HYALINE CASTS 4 /uL (0-3.1); PH,URINE 5.5 (5.0-8.0); URINE APPEARANCE CLOUDY; URINE BACTERIA >9,000 /uL (0-1359); URINE BILIRUBIN NEGATIVE (NEGATIVE); URINE COLOR YELLOW; URINE GLUCOSE (UA) NEGATIVE (NEGATIVE); URINE KETONE TRACE (NEGATIVE); URINE LEUK ESTERASE 1+ (NEGATIVE); URINE NITRITE POSITIVE (NEGATIVE); URINE PROTEIN TRACE (NEGATIVE); URINE WBC 135 /uL (0-25.8)
[2022-08-14 23:48] LABS: URINE RBC 522.5 /uL (0-23.9)
[2022-08-15 08:12] LABS: BASO % 1.8 % (0-2.0); EOS % 1.8 % (0-4.5); HEMATOCRIT 32.4 % (32.4-45.2); HEMOGLOBIN 10.4 GM/dL (10.7-15.3); LYMPH % 30.5 % (8-40); MCH 27.6 pg (25.7-33.7); MCHC 32.1 g/dl (32.0-36.0); MEAN CELL VOLUME 85.9 fl (80-96); MEAN PLT VOLUME 8.7 fl (7.5-11.1); MONO % 18.7 % (3.8-10.2); NEUT % 47.2 % (42.8-82.8); PLATELET COUNT 201 10^3/uL (134-434); RBC 3.77 M/mm3 (3.60-5.2); RDW 17.9 % (11.6-15.6); WHITE BLOOD COUNT 3.4 K/mm3 (4.0-10.0)
[2022-08-15] MEDS: INSULIN SLIDING SCALE (NOVOLOG) 1 VIAL SQ SCH ×4 (08:18→21:04)
[2022-08-15 08:25] LABS: ALBUMIN 3.4 g/dl (3.4-5.0); BLOOD UREA NITROGEN 23.5 mg/dL (7-18); CALCIUM 8.8 mg/dL (8.5-10.1)
[2022-08-15 08:26] LABS: MAGNESIUM 1.8 mg/dL (1.8-2.4)
[2022-08-15 08:28] LABS: CREATININE 0.7 mg/dL (0.55-1.3); PHOSPHOROUS 3.1 mg/dL (2.5-4.9)
[2022-08-15 08:29] LABS: BILIRUBIN,TOTAL 0.8 mg/dL (0.2-1); TOT PROT 6.8 g/dl (6.4-8.2)
[2022-08-15] MEDS ORDERED: ENOXAPARIN NA (PORCINE) 40 MG/0.4 ML DISP.SYRIN SQ ONE (09:55)
[2022-08-15] MEDS ORDERED: CLOPIDOGREL BISULFATE 75 MG TABLET (FP) ONE (09:55)
[2022-08-15] MEDS ORDERED: amLODIPine BESYLATE 10 MG TABLET (FP) ONE (09:55)
[2022-08-15] MEDS ORDERED: ASPIRIN COATED 81 MG TABLET.EC ONE (09:55)
[2022-08-15] MEDS ORDERED: metoPROLOL SUCCINATE 25 MG TAB.SR.24H (FP) PO ONE (09:55)
[2022-08-15] MEDS: ENOXAPARIN NA (PORCINE) 40 MG/0.4 ML DISP.SYRIN SQ SCH (10:04)
[2022-08-15] MEDS: ASPIRIN COATED 81 MG TABLET.EC PO SCH (10:04)
[2022-08-15] MEDS: amLODIPine BESYLATE 10 MG TABLET (FP) PO SCH (10:04)
[2022-08-15] MEDS: metoPROLOL SUCCINATE 25 MG TAB.SR.24H (FP) PO SCH (10:06)
[2022-08-15] MEDS: CLOPIDOGREL BISULFATE 75 MG TABLET (FP) PO SCH (10:06)
[2022-08-15] MEDS ORDERED: AZTREONAM 1 GM in DEXTROSE 5%-WATER - 50 ML IVPB ONE (11:40)
[2022-08-15] MEDS ORDERED: AZTREONAM 1 GM VIAL (RESTRICTED TO ID) ONE (11:50)
[2022-08-15] MEDS: AZTREONAM 1 GM in DEXTROSE 5%-WATER - 50 ML IVPB SCH (19:31)
[2022-08-16] MEDS: AZTREONAM 1 GM in DEXTROSE 5%-WATER - 50 ML IVPB SCH ×3 (02:26→17:01)
[2022-08-16] MEDS: INSULIN SLIDING SCALE (NOVOLOG) 1 VIAL SQ SCH ×4 (07:13→23:23)
[2022-08-16 09:46] LABS: BASO % 2.2 % (0-2.0); EOS % 3.8 % (0-4.5); HEMATOCRIT 30.1 % (32.4-45.2); HEMOGLOBIN 9.7 GM/dL (10.7-15.3); LYMPH % 40.6 % (8-40); MCH 27.8 pg (25.7-33.7); MCHC 32.3 g/dl (32.0-36.0); MEAN PLT VOLUME 8.1 fl (7.5-11.1); MONO % 16.8 % (3.8-10.2); NEUT % 36.6 % (42.8-82.8); PLATELET COUNT 204 10^3/uL (134-434); RDW 17.4 % (11.6-15.6); WHITE BLOOD COUNT 3.1 K/mm3 (4.0-10.0)
[2022-08-16 10:22] LABS: ALBUMIN 3.2 g/dl (3.4-5.0); CALCIUM 8.6 mg/dL (8.5-10.1)
[2022-08-16 10:25] LABS: CREATININE 0.8 mg/dL (0.55-1.3)
[2022-08-16 10:26] LABS: BILIRUBIN,TOTAL 0.7 mg/dL (0.2-1); TOT PROT 6.3 g/dl (6.4-8.2)
[2022-08-16] MEDS: ENOXAPARIN NA (PORCINE) 40 MG/0.4 ML DISP.SYRIN SQ SCH (11:30)
[2022-08-16] MEDS: ASPIRIN COATED 81 MG TABLET.EC PO SCH (11:30)
[2022-08-16] MEDS: CLOPIDOGREL BISULFATE 75 MG TABLET (FP) PO SCH (11:30)
[2022-08-16] MEDS: metoPROLOL SUCCINATE 25 MG TAB.SR.24H (FP) PO SCH (11:30)
[2022-08-16] MEDS: amLODIPine BESYLATE 10 MG TABLET (FP) PO SCH (11:30)
[2022-08-17] MEDS: AZTREONAM 1 GM in DEXTROSE 5%-WATER - 50 ML IVPB SCH ×2 (01:49→09:22)
[2022-08-17] MEDS: INSULIN SLIDING SCALE (NOVOLOG) 1 VIAL SQ SCH ×2 (06:23→12:32)
[2022-08-17 09:10] VITALS: RESP 18; TEMP 98.3
[2022-08-17] MEDS: metoPROLOL SUCCINATE 25 MG TAB.SR.24H (FP) PO SCH (09:22)
[2022-08-17] MEDS: ASPIRIN COATED 81 MG TABLET.EC PO SCH (09:22)
[2022-08-17] MEDS: ENOXAPARIN NA (PORCINE) 40 MG/0.4 ML DISP.SYRIN SQ SCH (09:22)
[2022-08-17] MEDS: CLOPIDOGREL BISULFATE 75 MG TABLET (FP) PO SCH (09:22)
[2022-08-17] MEDS ORDERED: LISINOPRIL 5 MG TABLET PO SCH (10:00)
[2022-08-17 12:05] VITALS: BP 145/61; PULSE 73
== END 2022-08-17 14:05 | disposition home or self-care (01) | DRG 689 ==
LOC: JER 13:55 → JERBED 16:54 → OBSVTOIN 17:33 → J8W 08-15 14:42 → J5S 08-16 18:05
PROVIDERS: ADMIT Internal Medicine; ATTEND Internal Medicine
DX: N39.0 Urinary tract infection, site not specified (principal); U07.1 COVID-19; I10 Essential (primary) hypertension; E78.5 Hyperlipidemia, unspecified; I25.10 Atherosclerotic heart disease of native coronary artery without angina pectoris; I35.0 Nonrheumatic aortic (valve) stenosis; F03.90 Unspecified dementia, unspecified severity, without behavioral disturbance, psychotic disturbance, mood disturbance, and anxiety; I95.89 Other hypotension; E11.9 Type 2 diabetes mellitus without complications; Z79.84 Long term (current) use of oral hypoglycemic drugs; B96.20 Unspecified Escherichia coli [E. coli] as the cause of diseases classified elsewhere; M54.50 Low back pain, unspecified; Z95.818 Presence of other cardiac implants and grafts; I95.1 Orthostatic hypotension
CPT/HCPCS: 36415; 71045-TC-FY; 80053; 81003; 82962; 83735; 84100; 84484; 85025; 87086; 87186; 87804; 93005; 93010; 97116-GP; 97161-GP; 99285-25; C9803-CS; G0378; U0003; U0005

== ENCOUNTER 2022-08-21 18:09 | Observation (INO) | payer OTHER ==
[2022-08-21 21:49] LABS: BASO % 1.1 % (0-2.0); EOS % 0.1 % (0-4.5); MCH 27.9 pg (25.7-33.7); MCHC 32.5 g/dl (32.0-36.0); MEAN PLT VOLUME 8.3 fl (7.5-11.1); MONO % 7.7 % (3.8-10.2); NEUT % 81.1 % (42.8-82.8); PLATELET COUNT 289 10^3/uL (134-434); RBC 3.95 M/mm3 (3.60-5.2); RDW 17.6 % (11.6-15.6); WHITE BLOOD COUNT 5.3 K/mm3 (4.0-10.0)
[2022-08-21 21:56] LABS: INR 1.19 (0.83-1.09); PROTHROMBIN TIME (PATIENT) 13.7 SEC (9.7-13.0)
[2022-08-21 21:59] LABS: ACTIVATED PTT 29.3 SECONDS (25.2-36.5)
[2022-08-21 22:06] LABS: CHLORIDE 107 mmol/L (98-107); SODIUM 141 mmol/L (136-145)
[2022-08-21 22:08] LABS: ALBUMIN 3.6 g/dl (3.4-5.0); ANION GAP 11 MMOL/L (8-16); BLOOD UREA NITROGEN 36.1 mg/dL (7-18); CALCIUM 9.4 mg/dL (8.5-10.1); CO2 24 mmol/L (21-32); MAGNESIUM 2.1 mg/dL (1.8-2.4)
[2022-08-21 22:09] LABS: GLUCOSE,RANDOM 124 mg/dL (74-106)
[2022-08-21 22:11] LABS: CREATININE 1.1 mg/dL (0.55-1.3); SGPT/ALT 18 U/L (13-61)
[2022-08-21 22:12] LABS: SGOT/AST 45 U/L (15-37)
[2022-08-21 22:13] LABS: TOT PROT 7.4 g/dl (6.4-8.2)
[2022-08-21 22:14] LABS: ALK PHOS 63 U/L (45-117)
[2022-08-21] MEDS ORDERED: ASPIRIN 325 MG TABLET PO ONE (22:29)
[2022-08-22] MEDS ORDERED: ASPIRIN 325 MG TABLET ONE (00:42)
[2022-08-22] MEDS ORDERED: SODIUM CHLORIDE 1,000 ML IV SCH (02:45)
[2022-08-22] MEDS ORDERED: ATORVASTATIN CA 80 MG TABLET (FP) PO ONE (03:07)
[2022-08-22] MEDS ORDERED: ATORVASTATIN CA 80 MG TABLET (FP) ONE (04:02)
[2022-08-22] MEDS ORDERED: POLYETHYLENE GLYCOL (HEALTHYLAX) 3350 17 GM PACKET ONE ×2 (06:19→13:01)
[2022-08-22] MEDS: POLYETHYLENE GLYCOL (HEALTHYLAX) 3350 17 GM PACKET PO SCH ×3 (06:35→21:43)
[2022-08-22] MEDS: INSULIN SLIDING SCALE (NOVOLOG) 1 VIAL SQ SCH ×4 (07:43→21:44)
[2022-08-22] MEDS ORDERED: ASPIRIN COATED 81 MG TABLET.EC ONE (09:00)
[2022-08-22] MEDS ORDERED: ENOXAPARIN NA (PORCINE) 40 MG/0.4 ML DISP.SYRIN SQ ONE (09:00)
[2022-08-22] MEDS ORDERED: CLOPIDOGREL BISULFATE 75 MG TABLET (FP) ONE (09:00)
[2022-08-22] MEDS: ENOXAPARIN NA (PORCINE) 40 MG/0.4 ML DISP.SYRIN SQ SCH (09:05)
[2022-08-22] MEDS: CLOPIDOGREL BISULFATE 75 MG TABLET (FP) PO SCH (09:05)
[2022-08-22] MEDS: ASPIRIN COATED 81 MG TABLET.EC PO SCH (09:05)
[2022-08-22 11:58] LABS: BASO % 0.9 % (0-2.0); EOS % 2.3 % (0-4.5); HEMATOCRIT 33.4 % (32.4-45.2); HEMOGLOBIN 10.9 GM/dL (10.7-15.3); MCH 28.1 pg (25.7-33.7); MCHC 32.5 g/dl (32.0-36.0); MEAN CELL VOLUME 86.6 fl (80-96); MEAN PLT VOLUME 8.2 fl (7.5-11.1); MONO % 12.2 % (3.8-10.2); NEUT % 60.6 % (42.8-82.8); PLATELET COUNT 280 10^3/uL (134-434); RBC 3.86 M/mm3 (3.60-5.2); RDW 17.7 % (11.6-15.6); WHITE BLOOD COUNT 4.5 K/mm3 (4.0-10.0)
[2022-08-22 12:30] LABS: BLOOD UREA NITROGEN 33.6 mg/dL (7-18); CALCIUM 9.7 mg/dL (8.5-10.1); MAGNESIUM 2.2 mg/dL (1.8-2.4)
[2022-08-22 12:31] LABS: ALBUMIN 3.4 g/dl (3.4-5.0)
[2022-08-22 12:34] LABS: PHOSPHOROUS 2.7 mg/dL (2.5-4.9)
[2022-08-22 12:35] LABS: BILIRUBIN,TOTAL 0.8 mg/dL (0.2-1); TOT PROT 7.1 g/dl (6.4-8.2)
[2022-08-22] MEDS ORDERED: SODIUM CHLORIDE 1,000 ML IV STA (14:44)
[2022-08-22 16:34] VITALS: BMI 32.5
[2022-08-22] MEDS ORDERED: ATORVASTATIN CA 80 MG TABLET (FP) PO SCH (22:00)
[2022-08-23] MEDS: INSULIN SLIDING SCALE (NOVOLOG) 1 VIAL SQ SCH ×3 (06:46→16:58)
[2022-08-23] MEDS: POLYETHYLENE GLYCOL (HEALTHYLAX) 3350 17 GM PACKET PO SCH ×2 (06:46→14:25)
[2022-08-23] MEDS: ENOXAPARIN NA (PORCINE) 40 MG/0.4 ML DISP.SYRIN SQ SCH (09:13)
[2022-08-23] MEDS: CLOPIDOGREL BISULFATE 75 MG TABLET (FP) PO SCH (09:14)
[2022-08-23] MEDS: ASPIRIN COATED 81 MG TABLET.EC PO SCH (09:14)
[2022-08-23] MEDS ORDERED: LACTULOSE 20 GM/30 ML UDC (FOR ORAL USE ONLY) PO ONE (09:34)
[2022-08-23] MEDS ORDERED: BISACODYL 10 MG SUPP.RECT PR ONE (09:34)
[2022-08-23] MEDS: DOCUSATE SODIUM 100 MG CAPSULE (FP) PO SCH ×2 (10:20→14:25)
[2022-08-23 14:49] VITALS: RESP 18
[2022-08-23 18:43] VITALS: BP 145/63; PULSE 72; TEMP 98.7
== END 2022-08-23 19:21 | disposition home or self-care (01) ==
LOC: JER 18:09 → JERBED 20:01 → INTOOBSV 20:01 → UNDOADMOB 20:01 → JERBED 08-22 08:10 → J4W 08-22 14:51
PROVIDERS: ADMIT Internal Medicine; ATTEND Nurse Practitioner Acute Care
PROC: 3E023GC Introduction of Other Therapeutic Substance into Muscle, Percutaneous Approach (ICD-10-PCS; principal; 2022-08-22)
PROC: 3E0337Z Introduction of Electrolytic and Water Balance Substance into Peripheral Vein, Percutaneous Approach (ICD-10-PCS; 2022-08-22)
DX: I25.10 Atherosclerotic heart disease of native coronary artery without angina pectoris (principal); N17.9 Acute kidney failure, unspecified; E78.5 Hyperlipidemia, unspecified; E11.9 Type 2 diabetes mellitus without complications; R79.89 Other specified abnormal findings of blood chemistry; I11.9 Hypertensive heart disease without heart failure; Z86.73 Personal history of transient ischemic attack (TIA), and cerebral infarction without residual deficits; Z88.0 Allergy status to penicillin; Z91.013 Allergy to seafood; Z91.018 Allergy to other foods; I35.0 Nonrheumatic aortic (valve) stenosis; K59.00 Constipation, unspecified
CPT/HCPCS: 0241U-QW; 36415; 71045-TC-FY; 71260-TC; 74177-TC; 80053; 82962; 83036; 83735; 84100; 84484; 85025; 85610; 85730; 87086; 93306-TC; 96360; 96372; 99285-25; G0378; Q9967

== ENCOUNTER 2022-09-09 15:24 | Inpatient (IN) | payer OTHER ==
[2022-09-09 15:57] VITALS: BMI 33.2
[2022-09-09 19:36] LABS: BASO % 0.8 % (0-2.0); EOS % 0.1 % (0-4.5); HEMATOCRIT 34.9 % (32.4-45.2); HEMOGLOBIN 11.4 GM/dL (10.7-15.3); LYMPH % 12.2 % (8-40); MCH 28.2 pg (25.7-33.7); MCHC 32.6 g/dl (32.0-36.0); MEAN CELL VOLUME 86.6 fl (80-96); MEAN PLT VOLUME 8.3 fl (7.5-11.1); MONO % 6.2 % (3.8-10.2); NEUT % 80.7 % (42.8-82.8); PLATELET COUNT 261 10^3/uL (134-434); RBC 4.04 M/mm3 (3.60-5.2); RDW 18.3 % (11.6-15.6); WHITE BLOOD COUNT 5.4 K/mm3 (4.0-10.0)
[2022-09-09 19:42] LABS: INR 1.23 (0.83-1.09); PROTHROMBIN TIME (PATIENT) 14.2 SEC (9.7-13.0)
[2022-09-09 19:44] LABS: ACTIVATED PTT 34.6 SECONDS (25.2-36.5)
[2022-09-09 19:54] LABS: ALBUMIN 3.7 g/dl (3.4-5.0); CALCIUM 9.8 mg/dL (8.5-10.1)
[2022-09-09 19:55] LABS: BLOOD UREA NITROGEN 38.6 mg/dL (7-18)
[2022-09-09 19:58] LABS: CREATININE 1.1 mg/dL (0.55-1.3)
[2022-09-09 19:59] LABS: TOT PROT 7.5 g/dl (6.4-8.2)
[2022-09-09 20:03] LABS: N-TERMINAL BNP 961.1 pg/ml (5-450)
[2022-09-10] MEDS ORDERED: levETIRAcetam 500 MG TABLET (FP) PO SCH (00:45)
[2022-09-10] MEDS ORDERED: LACTATED RINGERS SOLUTION 1,000 ML/1,000 ML INFUS.BAG IV SCH (01:00)
[2022-09-10] MEDS ORDERED: levETIRAcetam 500 MG TABLET (FP) PO ONE (05:28)
[2022-09-10] MEDS ORDERED: INSULIN SLIDING SCALE (NOVOLOG) 1 VIAL SQ SCH (07:00)
[2022-09-10 07:09] LABS: HEMATOCRIT 33.2 % (32.4-45.2); HEMOGLOBIN 10.7 GM/dL (10.7-15.3); MCH 27.9 pg (25.7-33.7); MCHC 32.1 g/dl (32.0-36.0); MEAN PLT VOLUME 8.5 fl (7.5-11.1); PLATELET COUNT 230 10^3/uL (134-434); RBC 3.82 M/mm3 (3.60-5.2); RDW 18.4 % (11.6-15.6); WHITE BLOOD COUNT 4.1 K/mm3 (4.0-10.0)
[2022-09-10 08:24] VITALS: RESP 18
[2022-09-10 09:24] LABS: ALBUMIN 3.5 g/dl (3.4-5.0); CALCIUM 9.5 mg/dL (8.5-10.1)
[2022-09-10 09:25] LABS: BLOOD UREA NITROGEN 44.8 mg/dL (7-18)
[2022-09-10 09:27] LABS: CREATININE 1.3 mg/dL (0.55-1.3); PHOSPHOROUS 3.4 mg/dL (2.5-4.9)
[2022-09-10 09:29] LABS: BILIRUBIN,TOTAL 0.8 mg/dL (0.2-1); TOT PROT 6.8 g/dl (6.4-8.2)
[2022-09-10] MEDS ORDERED: CLOPIDOGREL BISULFATE 75 MG TABLET (FP) PO SCH (10:00)
[2022-09-10] MEDS ORDERED: ENOXAPARIN NA (PORCINE) 40 MG/0.4 ML DISP.SYRIN SQ SCH (10:00)
[2022-09-10] MEDS ORDERED: ASPIRIN COATED 81 MG TABLET.EC PO SCH (10:00)
[2022-09-10] MEDS ORDERED: metoPROLOL SUCCINATE 25 MG TAB.SR.24H (FP) PO SCH (10:00)
[2022-09-10 11:00] VITALS: BP 115/72; PULSE 85; TEMP 98.8
[2022-09-10] MEDS ORDERED: ATORVASTATIN CA 80 MG TABLET (FP) PO SCH (22:00)
== END 2022-09-10 11:30 | disposition home or self-care (01) | DRG 312 ==
LOC: JER 15:24 → JERBED 21:23
PROVIDERS: ADMIT Internal Medicine
DX: R55 Syncope and collapse (principal); U07.1 COVID-19; E11.9 Type 2 diabetes mellitus without complications; E78.5 Hyperlipidemia, unspecified; I25.10 Atherosclerotic heart disease of native coronary artery without angina pectoris; R07.9 Chest pain, unspecified; Z95.5 Presence of coronary angioplasty implant and graft; I35.0 Nonrheumatic aortic (valve) stenosis; I11.9 Hypertensive heart disease without heart failure
CPT/HCPCS: 0241U-QW; 36415; 71045-TC-FY; 80053; 82962; 83735; 83880; 84100; 84484; 85025; 85027; 85610; 85730; 86850; 86900; 86901; 93005; 93010; 99285-25

== ENCOUNTER 2022-10-17 14:29 | Observation (INO) | payer OTHER ==
[2022-10-17 15:56] LABS: HEMATOCRIT 31.4 % (32.4-45.2); HEMOGLOBIN 9.8 GM/dL (10.7-15.3); MCH 27.1 pg (25.7-33.7); MCHC 31.3 g/dl (32.0-36.0); MEAN CELL VOLUME 86.4 fl (80-96); MEAN PLT VOLUME 8.4 fl (7.5-11.1); PLATELET COUNT 230 10^3/uL (134-434); RBC 3.63 M/mm3 (3.60-5.2); RDW 18.2 % (11.6-15.6); WHITE BLOOD COUNT 3.7 K/mm3 (4.0-10.0)
[2022-10-17 16:01] LABS: INR 1.17 (0.83-1.09); PROTHROMBIN TIME (PATIENT) 13.5 SEC (9.7-13.0)
[2022-10-17 16:25] LABS: ALBUMIN 3.2 g/dl (3.4-5.0)
[2022-10-17 16:26] LABS: CALCIUM 8.8 mg/dL (8.5-10.1)
[2022-10-17 16:29] LABS: CREATININE 0.8 mg/dL (0.55-1.3)
[2022-10-17 16:30] LABS: TOT PROT 6.6 g/dl (6.4-8.2)
[2022-10-17 16:31] LABS: BILIRUBIN,TOTAL 0.7 mg/dL (0.2-1)
[2022-10-17 19:51] LABS: N-TERMINAL BNP 3719.1 pg/ml (5-450)
[2022-10-17] MEDS ORDERED: SODIUM CHLORIDE 1,000 ML IV SCH (23:15)
[2022-10-17 23:23] LABS: ANISOCYTOSIS 2+; MACROCYTOSIS 1+; OVALOCYTE 1+
[2022-10-18] MEDS ORDERED: ATORVASTATIN CA 80 MG TABLET (FP) ONE (01:29)
[2022-10-18] MEDS: ATORVASTATIN CA 80 MG TABLET (FP) PO SCH ×2 (01:37→21:43)
[2022-10-18] MEDS: INSULIN SLIDING SCALE (NOVOLOG) 1 VIAL SQ SCH ×4 (06:57→21:40)
[2022-10-18 07:37] VITALS: BMI 31.3
[2022-10-18] MEDS: CLOPIDOGREL BISULFATE 75 MG TABLET (FP) PO SCH (10:52)
[2022-10-18] MEDS: ENOXAPARIN NA (PORCINE) 40 MG/0.4 ML DISP.SYRIN SQ SCH (10:52)
[2022-10-18] MEDS: ASPIRIN COATED 81 MG TABLET.EC PO SCH (10:52)
[2022-10-18] MEDS: CYANOCOBALAMIN (VITAMIN B-12) 1000 MCG/1 ML VIAL IM SCH (10:53)
[2022-10-18 11:02] LABS: BASO % 2.2 % (0-2.0); EOS % 3.9 % (0-4.5); HEMOGLOBIN 9.7 GM/dL (10.7-15.3); LYMPH % 30.3 % (8-40); MCH 28.2 pg (25.7-33.7); MCHC 32.2 g/dl (32.0-36.0); MEAN CELL VOLUME 87.6 fl (80-96); MEAN PLT VOLUME 8.9 fl (7.5-11.1); MONO % 8.8 % (3.8-10.2); NEUT % 54.8 % (42.8-82.8); PLATELET COUNT 253 10^3/uL (134-434); RBC 3.43 M/mm3 (3.60-5.2); RDW 17.9 % (11.6-15.6); WHITE BLOOD COUNT 3.3 K/mm3 (4.0-10.0)
[2022-10-18 11:15] LABS: URINE APPEARANCE CLOUDY; URINE BILIRUBIN NEGATIVE (NEGATIVE); URINE COLOR YELLOW; URINE GLUCOSE (UA) NEGATIVE (NEGATIVE); URINE KETONE NEGATIVE (NEGATIVE); URINE LEUK ESTERASE NEGATIVE (NEGATIVE); URINE NITRITE NEGATIVE (NEGATIVE); URINE PROTEIN NEGATIVE (NEGATIVE)
[2022-10-18 11:24] LABS: CALCIUM 8.7 mg/dL (8.5-10.1)
[2022-10-18 11:25] LABS: BLOOD UREA NITROGEN 22.8 mg/dL (7-18); MAGNESIUM 2.1 mg/dL (1.8-2.4)
[2022-10-18 11:27] LABS: CREATININE 0.8 mg/dL (0.55-1.3); PHOSPHOROUS 2.8 mg/dL (2.5-4.9)
[2022-10-18 11:29] LABS: BILIRUBIN,TOTAL 0.8 mg/dL (0.2-1); TOT PROT 6.2 g/dl (6.4-8.2)
[2022-10-19] MEDS: INSULIN SLIDING SCALE (NOVOLOG) 1 VIAL SQ SCH ×3 (07:10→16:13)
[2022-10-19 09:55] VITALS: RESP 20; TEMP 98.1
[2022-10-19] MEDS: CYANOCOBALAMIN (VITAMIN B-12) 1000 MCG/1 ML VIAL IM SCH (09:57)
[2022-10-19] MEDS: CLOPIDOGREL BISULFATE 75 MG TABLET (FP) PO SCH (09:57)
[2022-10-19] MEDS: ASPIRIN COATED 81 MG TABLET.EC PO SCH (09:57)
[2022-10-19] MEDS: ENOXAPARIN NA (PORCINE) 40 MG/0.4 ML DISP.SYRIN SQ SCH (09:57)
[2022-10-19] MEDS ORDERED: amLODIPine BESYLATE 5 MG TABLET (FP) PO SCH (15:35)
[2022-10-19 16:18] VITALS: BP 143/85; PULSE 93
== END 2022-10-19 18:15 | disposition home or self-care (01) ==
LOC: JER 14:29 → JERBED 21:00 → J4W 10-18 06:30
PROVIDERS: ADMIT Internal Medicine; ATTEND Internal Medicine
PROC: 3E023GC Introduction of Other Therapeutic Substance into Muscle, Percutaneous Approach (ICD-10-PCS; principal; 2022-10-17)
DX: I25.10 Atherosclerotic heart disease of native coronary artery without angina pectoris (principal); I35.0 Nonrheumatic aortic (valve) stenosis; E11.9 Type 2 diabetes mellitus without complications; Z91.018 Allergy to other foods; Z88.0 Allergy status to penicillin; E78.5 Hyperlipidemia, unspecified; R55 Syncope and collapse; F17.210 Nicotine dependence, cigarettes, uncomplicated; R79.89 Other specified abnormal findings of blood chemistry; Z86.73 Personal history of transient ischemic attack (TIA), and cerebral infarction without residual deficits
CPT/HCPCS: 0241U-QW; 36415; 70450-TC; 71045-TC-FY; 80053; 81003; 82550; 82607; 82728; 82962; 83036; 83540; 83550; 83735; 83880; 84100; 84484; 85025; 85027; 85045; 85610; 93005; 93010; 96372; 97116-GP; 97161-GP; 99285-25; G0378

== ENCOUNTER 2023-04-19 13:28 | Emergency (ER) | payer OTHER ==
[2023-04-19 13:57] VITALS: BMI 35.2
[2023-04-19] MEDS ORDERED: SODIUM CHLORIDE 0.9% 500 ML INFUS.BAG IV ONE (14:31)
[2023-04-19 16:13] LABS: URINE APPEARANCE CLEAR; URINE BILIRUBIN NEGATIVE (NEGATIVE); URINE COLOR YELLOW; URINE GLUCOSE (UA) NEGATIVE (NEGATIVE); URINE KETONE NEGATIVE (NEGATIVE); URINE LEUK ESTERASE NEGATIVE (NEGATIVE); URINE NITRITE NEGATIVE (NEGATIVE); URINE PROTEIN NEGATIVE (NEGATIVE)
[2023-04-19 17:09] LABS: BASO % 1.1 % (0-2.0); EOS % 1.2 % (0-4.5); HEMATOCRIT 32.7 % (32.4-45.2); HEMOGLOBIN 10.6 GM/dL (10.7-15.3); LYMPH % 27.7 % (8-40); MCH 27.4 pg (25.7-33.7); MCHC 32.3 g/dl (32.0-36.0); MEAN PLT VOLUME 8.3 fl (7.5-11.1); PLATELET COUNT 274 10^3/uL (134-434); RBC 3.85 M/mm3 (3.60-5.2); RDW 18.1 % (11.6-15.6); WHITE BLOOD COUNT 4.6 K/mm3 (4.0-10.0)
[2023-04-19 17:15] LABS: INR 1.03 (0.83-1.09)
[2023-04-19 17:18] LABS: ACTIVATED PTT 33.4 SECONDS (25.2-36.5)
[2023-04-19 17:20] LABS: POTASSIUM 3.9 mmol/L (3.5-5.1)
[2023-04-19 17:22] LABS: CALCIUM 8.9 mg/dL (8.5-10.1)
[2023-04-19 17:23] LABS: ALBUMIN 3.6 g/dl (3.4-5.0); BLOOD UREA NITROGEN 15.9 mg/dL (7-18)
[2023-04-19 17:26] LABS: CREATININE 0.7 mg/dL (0.55-1.3)
[2023-04-19 17:28] LABS: BILIRUBIN,TOTAL 0.6 mg/dL (0.2-1); TOT PROT 7.5 g/dl (6.4-8.2)
[2023-04-19 17:31] LABS: N-TERMINAL BNP 842.6 pg/ml (5-450)
[2023-04-19 22:35] VITALS: BP 100/65; PULSE 92; RESP 16; TEMP 98
== END 2023-04-19 19:37 | disposition left against medical advice (07) ==
LOC: JER 13:28
DX: R42 Dizziness and giddiness (principal); R53.1 Weakness; R55 Syncope and collapse; Z20.822 Contact with and (suspected) exposure to COVID-19
CPT/HCPCS: 0241U-QW; 36415; 71045-TC-FY; 80053; 81003; 82962; 83735; 83880; 84484; 85025; 85610; 85730; 87086; 87186; 93005; 93010; 99285-25

== ENCOUNTER 2023-07-04 12:52 | Emergency (ER) | payer OTHER ==
[2023-07-04 13:31] LABS: BASO % 1.2 % (0-2.0); EOS % 1.5 % (0-4.5); HEMATOCRIT 29.6 % (32.4-45.2); HEMOGLOBIN 9.3 GM/dL (10.7-15.3); LYMPH % 30.2 % (8-40); MCHC 31.5 g/dl (32.0-36.0); MEAN CELL VOLUME 85.6 fl (80-96); MONO % 9.5 % (3.8-10.2); NEUT % 57.6 % (42.8-82.8); PLATELET COUNT 231 10^3/uL (134-434); RBC 3.46 M/mm3 (3.60-5.2); RDW 17.4 % (11.6-15.6); WHITE BLOOD COUNT 3.9 K/mm3 (4.0-10.0)
[2023-07-04 13:38] LABS: INR 1.13 (0.83-1.09); PROTHROMBIN TIME (PATIENT) 13.1 SEC (9.7-13.0)
[2023-07-04 13:40] LABS: ACTIVATED PTT 27.3 SECONDS (25.2-36.5)
[2023-07-04 13:55] LABS: POTASSIUM 3.4 mmol/L (3.5-5.1)
[2023-07-04 13:57] LABS: ALBUMIN 3.3 g/dl (3.4-5.0); BLOOD UREA NITROGEN 24.2 mg/dL (7-18); CALCIUM 8.5 mg/dL (8.5-10.1)
[2023-07-04 13:58] VITALS: BMI 35.7
[2023-07-04 14:02] LABS: BILIRUBIN,TOTAL 0.7 mg/dL (0.2-1); TOT PROT 6.8 g/dl (6.4-8.2)
[2023-07-04] MEDS ORDERED: SODIUM CHLORIDE 0.9% 500 ML INFUS.BAG IV ONE (14:15)
[2023-07-04] MEDS ORDERED: POTASSIUM CHLORIDE ORAL LIQUID 20 MEQ/15 ML PO ONE (14:15)
[2023-07-04] MEDS ORDERED: ASPIRIN 81 MG CHEWABLE TABLETS PO ONE (15:04)
[2023-07-04] MEDS ORDERED: ASPIRIN 325 MG TABLET PO ONE (15:17)
[2023-07-04] MEDS ORDERED: ASPIRIN 325 MG TABLET ONE (16:08)
[2023-07-04] MEDS ORDERED: POTASSIUM CHLORIDE ORAL LIQUID 20 MEQ/15 ML ONE (16:09)
[2023-07-04 16:40] VITALS: BP 150/56; PULSE 87; RESP 18; TEMP 97.8
== END 2023-07-04 16:40 | disposition short-term general hospital (02) ==
LOC: JER 12:52
DX: R29.810 Facial weakness (principal); R47.81 Slurred speech; I63.9 Cerebral infarction, unspecified; G45.9 Transient cerebral ischemic attack, unspecified; R53.83 Other fatigue; R53.1 Weakness
CPT/HCPCS: 36415; 70450-TC; 70496-TC; 70498-TC; 71045-TC-FY; 80053; 82550; 82553; 83605; 84484; 85025; 85610; 85730; 93005; 93010; 99291

== ENCOUNTER 2024-03-06 18:49 | Emergency (ER) | payer OTHER ==
[2024-03-06 18:56] VITALS: BP 138/75; PULSE 86; RESP 18; TEMP 97.7; BMI 29.2
[2024-03-06] MEDS ORDERED: ACETAMINOPHEN 325 MG TABLET (FP) ONE (20:14)
[2024-03-06] MEDS ORDERED: LIDOCAINE 4% PATCH TP ONE (20:14)
[2024-03-06] MEDS: ACETAMINOPHEN 325 MG TABLET (FP) PO ONE (20:45)
[2024-03-06] MEDS: LIDOCAINE 5% TOPICAL PATCH TP ONE (20:52)
[2024-03-06] MEDS: LIDOCAINE PATCH REMOVAL MC SCH (22:39)
[2024-03-06] MEDS ORDERED: KETOROLAC TROMETHAMINE 15 MG/ML VIAL ONE (22:39)
[2024-03-06] MEDS: KETOROLAC TROMETHAMINE 15 MG/ML VIAL IM ONE (22:45)
== END 2024-03-07 05:21 | disposition home or self-care (01) ==
LOC: JER 18:49
PROC: 3E0233Z Introduction of Anti-inflammatory into Muscle, Percutaneous Approach (ICD-10-PCS; principal; 2024-03-06)
DX: M25.551 Pain in right hip (principal); M25.561 Pain in right knee; M54.31 Sciatica, right side; W06.XXXA Fall from bed, initial encounter
CPT/HCPCS: 70450-TC; 73521-TC-FY; 73552-TC-RT-FY; 73560-TC-LT-FY; 73560-TC-RT-FY; 99284-25